=== PATIENT | female | born 1945 | race Caucasian/White ===

== ENCOUNTER 2016-06-09 03:06 | Inpatient (IN) | payer OTHER ==
[~2016-06-09] VITALS: Ht 167.6 cm; Wt 60.8 kg
[~2016-06-09 03:06] MED LIST: ADVAIR HFA120 INHALA IH; ALPRAZOLAM0.25 M2 PO; AMLODIPINE BESYL5 MG PO; ASPIRIN E.C.81 M1 PO; ASPIRIN81 M1 PO; ATORVASTATIN CA40 MG PO; Arava PO; BENTYL10 MG PO; BUMEX2 MG PO; CARDIZEM CD240 MG PO; CATAPRES0.1 MG PO; CEFTIN250 MG PO; CITALOPRAM HBR20 M1 PO; CITALOPRAM HBR20 MG PO; CLEOCIN150 MG PO; CLONIDINE HCL0.1 MG PO; COLACE100 MG PO; COUMADIN PO; COUMADIN,JANTOVE4 MG PO; COUMADIN3 M1 PO; CRESTOR20 MG PO; Catapres PO; Colace PO; DULOXETINE HCL30 MG PO; DUONEB 2.5-0.5 M3 ML AEROSOL; DURICEF PO; Deltasone PO; ENDOCET 5-3251 EACH PO; Ecotrin PO; FAMOTIDINE20 MG PO; FENOFIBRATE160 M1 PO; FENOFIBRATE160 MG PO; FLUCONAZOLE150 MG PO; FUROSEMIDE20 MG PO; Flexeril PO; GABAPENTIN100 MG PO; GABAPENTIN300 MG PO; GERI-TUSSI100 MG/5 M PO; GLIPIZIDE ER2.5 MG PO; GLIPIZIDE5 M1 PO; GLIPIZIDE5 MG PO; Glucotrol PO; ISOSORBIDE MONO30 MG PO; KENALOG,ARISTOC15 G3 TP; LACTINEX,FLO1 PACKET PO; LAMICTAL25 MG PO; LASIX10 MG PO; LASIX20 MG PO; LASIX40 MG PO; LEFLUNOMIDE20 MG PO; LEVAQUIN500 MG PO; LEVOFLOXACIN500 MG PO; LEVOFLOXACIN750 MG PO; LEVOTHROID,S0.125 MG PO; LEVOTHYROXINE125 MCG PO; LEVOTHYROXINE50 MCG PO; LIDODERM 5% P1 PATCH TD; LISINOPRIL10 MG PO; LITE COAT ASPI325 M1 PO; LOPRESSOR100 M1 PO; Lasix PO; Levothroid,Synthroid PO; Lopressor PO; MAXIPIME1 GM IM; METOPROLOL SUC100 MG PO; METOPROLOL TAR100 MG PO; MULTIVITAMIN1 EAC2 PO; NAFCIL IV; NAFCIL1 GM IV; NAPROSYN500 MG PO; NEURONTIN100 MG PO; NEURONTIN300 MG PO; NITROSTAT,NITR0.4 M1 SL; NITROSTAT0.4 MG SL; NORVASC5 MG PO; NYAMYC60 GM TP; NYSTATIN15 GM TP; Neurontin PO; Nitrostat,NitroQuick SL; Norvasc PO; OMEPRAZOLE20 M2 PO; OXYCODONE HCL10 MG PO; OXYCODONE HCL5 MG PO; OXYCODONE-APAP1 EACH PO; Oscal 500 w/Vitamin PO; OxyCODONE PO; PERCOCET 10/1 TABLET PO; PERCOCET 5/31 TABLET PO; PERCOCET 7.51 TABLET PO; POTASSIUM CHLO10 ME3 PO; PREDNISONE10 MG PO; PREDNISONE2.5 MG PO; PREDNISONE20 MG PO; PREDNISONE5 M2 PO; PREDNISONE5 MG PO; PROCHLORPERAZIN10 MG PO; PROTONIX40 MG PO; Percocet 5/325,Endoc PO; RANITIDINE HCL150 MG PO; ROCEPHIN1000 MG IM; Robaxin PO; SENNA S TABLET1 EACH PO; SERTRALINE HCL50 MG PO; SPIRIVA RESPIMAT4 GM IH; SYNTHROID200 MCG PO; Senokot,Sennagen PO; TIROSINT125 MCG PO; TOPIRAMATE50 MG PO; TRAMADOL HCL50 MG PO; TRAZODONE HCL50 MG PO; TYLENOL REGULA325 MG PO; Theragran PO; Tirosint; Toprol XL PO; Tricor PO; Tylenol Regular Stre PO; VITAMIN D50000 UNI2 PO; VITAMIN D50000 UNIT PO; VYTORIN 10-801 EACH PO; VYTORIN 10/81 TABLET PO; Vitamin B-12 PO; Vitamin D, Drisdol PO; XARELTO PO; XARELTO15 MG PO; XARELTO20 MG PO; ZESTRIL,PRINIVI10 M1 PO; ZESTRIL,PRINIVI10 MG PO; ZOFRAN4 MG PO; Zestril,Prinivil PO; celeXA PO; predniSONE PO
[2016-06-09 04:26] LABS: HEMATOCRIT 33.3 % (36.0-46.0); MCH 25.1 PG (29.0-34.0); MCHC 30.9 G/DL (30.0-36.0); MEAN PLAT.VOLUME 9.8 uM^3 (9.5-12.4); PLATELET COUNT 229 K/uL (156-360); RBC DIS.WIDTH-CV 15.9 % (11.8-14.6); RBC DIS.WIDTH-SD 46.6 % (39-53); RED BLOOD COUNT 4.11 M/uL (3.80-5.20); WHITE BLOOD COUNT 20.7 K/uL (4.1-10.2)
[2016-06-09 04:28] LABS: ADD MIUA? YES; BILIRUBIN NEGATIVE; BLOOD NEGATIVE; COLOR YELLOW ((YELLOW)); GLUCOSE (STRIP) NEGATIVE; KETONES NEGATIVE; LEUKOCYTES MODERATE; NITRITE NEGATIVE; PROTEIN (STRIP) 30; SPECIFIC GRAVITY 1.014 (1.000-1.030); UROBILINOGEN 0.2 MG/DL (0.2-1.0)
[2016-06-09 04:36] LABS: BACTERIA NONE SEEN /HPF; EPITHELIAL CELLS RARE /HPF; MUCUS TRACE /LPF; RED BLOOD CELLS 0-5 /HPF (0-5); UCUL ADDED? NO; UNCLASSIFIED CRYSTALS 1+ /HPF; WHITE BLOOD CELLS 30-40 /HPF (0-5)
[2016-06-09 04:39] LABS: CHLORIDE 109 mEq/L (99-109); POTASSIUM 4.8 mEq/L (3.7-5.4); SODIUM 142 mEq/L (136-147)
[2016-06-09 04:42] LABS: GLUCOSE 179 mg/dL (70-99)
[2016-06-09 04:43] LABS: ANION GAP 11 MEQ/L (2-14); TOTAL BILIRUBIN 0.5 mg/dL (0.0-1.0)
[2016-06-09 04:45] LABS: ALKALINE PHOSPHATASE 108 IU/L (3-129); GFR ESTIMATE (CALCULATED) 43 mL/min/
[2016-06-09 04:46] LABS: UREA NITROGEN (BUN) 26 mg/dL (9-23)
[2016-06-09 04:49] LABS: LIPASE 2 U/L (1.0-51.0)
[2016-06-09] MEDS ORDERED: ALPRAZOLAM0.5 MG PO (06:30)
[2016-06-09] MEDS ORDERED: NITROSTAT0.4 MG SL (06:31)
[2016-06-09 07:35] VITALS: BP 133/59
[2016-06-09 08:46] LABS: BASE EXCESS 0.9 mEq/L (-3 to +3); METHEMOGLOBIN 1.8 % (0-1.5); PO2 111 mm Hg (80-100); pH 7.39 (7.35-7.45)
[2016-06-09 08:47] LABS: COMMENTS - BLOOD GASES A+C+; DEVICE NC; O2 FLOW 2 L/MIN; PCO2 43 mm Hg (35-45); SITE LR
[2016-06-09] MEDS ORDERED: BUMEX1 MG PO (10:30)
[2016-06-09] MEDS ORDERED: LEVO-T75 MCG PO (10:36)
[2016-06-09] MEDS ORDERED: SPIRIVA1 INHALATI IH (10:38)
[2016-06-09] MEDS ORDERED: ADVAIR HFA120 INHALA IH (10:40)
[2016-06-09] MEDS ORDERED: ENDOCET 10-3251 EACH PO (10:52)
[2016-06-09] MEDS ORDERED: FLEET ENEMA-AD118 ML PR (10:54)
[2016-06-09 11:35] VITALS: BP 127/67
[2016-06-09 14:37] LABS: EOSINOPHIL (%) 0.7 % (0-5); EOSINOPHIL COUNT 0.1 K/uL (0-0.3); IMMATURE GRANULOCYTE (%) 1.4 % (0.0-0.7); IMMATURE GRANULOCYTE COUNT 0.3 K/uL; INSTRUMENT ABS NEUTROPHIL CT 18.1 K/uL; LYMPHOCYTE COUNT 0.7 K/uL (1.0-2.8); MONOCYTE (%) 7.2 % (3-12); MONOCYTE COUNT 1.5 K/uL (0-0.8); NEUTROPHIL (%) 87.3 % (45-76); NEUTROPHIL COUNT 18.1 K/uL (1.8-6.4)
[2016-06-09 15:31] LABS: C DIFF TOXIN NEGATIVE (NEGATIVE)
[2016-06-09 15:42] LABS: PROBE CHECK PASS; SPECIMEN PROCESSING CONTROL PASS
[2016-06-09 16:19] VITALS: BP 126/59
[2016-06-09 18:15] VITALS: BP 105/60
[2016-06-09 20:30] VITALS: BP 85/64
[2016-06-10] VITALS (7 sets, daily range): BP systolic 92–116; BP diastolic 52–76
[2016-06-10 05:57] LABS: MCHC 29.3 G/DL (30.0-36.0); RBC DIS.WIDTH-CV 16.6 % (11.8-14.6); RBC DIS.WIDTH-SD 51.2 % (39-53); RED BLOOD COUNT 3.52 M/uL (3.80-5.20)
[2016-06-10 06:01] LABS: ALKALINE PHOSPHATASE 86 IU/L (3-129); ANION GAP 12 MEQ/L (2-14); CHLORIDE 111 MEQ/L (99-109); GFR ESTIMATE (CALCULATED) 34 mL/min/; GLUCOSE 170 mg/dL (70-99); POTASSIUM 4.1 MEQ/L (3.7-5.4); SAMPLE HEMOLYSIS CHECK 0; SAMPLE ICTERIC CHECK 0; SAMPLE LIPEMIA CHECK 0; SODIUM 141 MEQ/L (136-147); TOTAL BILIRUBIN 0.8 MG/DL (0.0-1.0); UREA NITROGEN (BUN) 28 mg/dL (9-23)
[2016-06-10 06:09] LABS: MCV 85.2 FL (83-99); WHITE BLOOD COUNT 12.9 K/uL (4.1-10.2)
[2016-06-10 07:20] LABS: EOSINOPHIL (%) 1.2 % (0-5); EOSINOPHIL COUNT 0.2 K/uL (0-0.3); IMMATURE GRANULOCYTE (%) 0.4 % (0.0-0.7); IMMATURE GRANULOCYTE COUNT 0.1 K/uL; INSTRUMENT ABS NEUTROPHIL CT 11.8 K/uL; LYMPHOCYTE COUNT 0.1 K/uL (1.0-2.8); MEAN PLAT.VOLUME 10.5 uM^3 (9.5-12.4); MONOCYTE (%) 5.6 % (3-12); MONOCYTE COUNT 0.7 K/uL (0-0.8); NEUTROPHIL (%) 91.7 % (45-76); NEUTROPHIL COUNT 11.8 K/uL (1.8-6.4); PLAT.SUFFICIENCY ADEQUATE; PLATELET COUNT 166 K/uL (156-360)
[2016-06-10 08:00] LABS: POINT-OF-CARE METER ID UU14174216
[2016-06-11 01:23] LABS: TROP-I INTERPRETATION NEGATIVE; TROPONIN-I 0.03 ng/mL (0.0-0.30)
[2016-06-11 03:44] VITALS: BP 88/61
[2016-06-11 06:45] LABS: HEMATOCRIT 29.3 % (36.0-46.0); MCH 24.4 PG (29.0-34.0); MCHC 29.4 G/DL (30.0-36.0); MCV 83.2 FL (83-99); MEAN PLAT.VOLUME 10.7 uM^3 (9.5-12.4); PLATELET COUNT 155 K/uL (156-360); RBC DIS.WIDTH-SD 51.8 % (39-53); RED BLOOD COUNT 3.52 M/uL (3.80-5.20); WHITE BLOOD COUNT 9.4 K/uL (4.1-10.2)
[2016-06-11 07:10] LABS: ANION GAP 12 MEQ/L (2-14); CHLORIDE 109 MEQ/L (99-109); GFR ESTIMATE (CALCULATED) 29 mL/min/; MAGNESIUM 1.6 mg/dl (1.3-2.7); POTASSIUM 3.5 MEQ/L (3.7-5.4); SAMPLE HEMOLYSIS CHECK 0; SAMPLE ICTERIC CHECK 0; SAMPLE LIPEMIA CHECK 0; SODIUM 138 MEQ/L (136-147); UREA NITROGEN (BUN) 34 mg/dL (9-23)
[2016-06-11 07:11] VITALS: BP 90/50
[2016-06-11 07:12] LABS: GLUCOSE 109 mg/dL (70-99)
[2016-06-11 10:55] VITALS: BP 106/53
[2016-06-11 10:58] LABS: POINT-OF-CARE METER ID UU14174216
[2016-06-11 15:28] LABS: ADD MIUA? YES; BILIRUBIN NEGATIVE; BLOOD SMALL; COLOR YELLOW ((YELLOW)); GLUCOSE (STRIP) NEGATIVE; KETONES NEGATIVE; LEUKOCYTES SMALL; NITRITE NEGATIVE; PROTEIN (STRIP) NEGATIVE; SPECIFIC GRAVITY 1.012 (1.000-1.030); UROBILINOGEN 0.2 MG/DL (0.2-1.0)
[2016-06-11 15:47] LABS: POINT-OF-CARE METER ID UU14174216
[2016-06-11 15:47] LABS: UR CREATININE CONCENTRATION 61.8 MG/DL
[2016-06-11 16:45] VITALS: BP 93/54
[2016-06-11 18:30] LABS: CASTS PRESENT /LPF; EPITHELIAL CELLS 2+ /HPF; FINE GRANULAR CASTS RARE /LPF; HYALINE CASTS RARE /LPF; MUCUS NONE SEEN /LPF
[2016-06-11 18:31] LABS: BACTERIA RARE /HPF; CELLULAR CASTS RARE /LPF; COARSE GRANULAR CASTS RARE /LPF; RED BLOOD CELLS RARE /HPF (0-5)
[2016-06-11 19:39] VITALS: BP 121/74
[2016-06-11 23:54] VITALS: BP 141/84
[2016-06-12 04:11] VITALS: BP 119/59
[2016-06-12 07:28] VITALS: BP 129/59
[2016-06-12 07:37] LABS: POINT-OF-CARE METER ID UU14174216
[2016-06-12 07:42] LABS: HEMATOCRIT 27.7 % (36.0-46.0); MCH 24.8 PG (29.0-34.0); MCHC 30.3 G/DL (30.0-36.0); MCV 81.7 FL (83-99); MEAN PLAT.VOLUME 10.8 uM^3 (9.5-12.4); PLATELET COUNT 156 K/uL (156-360); RBC DIS.WIDTH-CV 17.2 % (11.8-14.6); RBC DIS.WIDTH-SD 50.9 % (39-53); RED BLOOD COUNT 3.39 M/uL (3.80-5.20)
[2016-06-12 09:49] LABS: ANION GAP 9 MEQ/L (2-14); CHLORIDE 115 MEQ/L (99-109); GFR ESTIMATE (CALCULATED) 34 mL/min/; GLUCOSE 126 mg/dL (70-99); IRON < 10 MCG/DL (35-150); MAGNESIUM 1.9 mg/dl (1.3-2.7); POTASSIUM 3.8 MEQ/L (3.7-5.4); SAMPLE HEMOLYSIS CHECK 0; SAMPLE ICTERIC CHECK 0; SAMPLE LIPEMIA CHECK 0; SODIUM 142 MEQ/L (136-147); UREA NITROGEN (BUN) 31 mg/dL (9-23)
[2016-06-12 11:34] VITALS: BP 137/66
[2016-06-12 16:33] VITALS: BP 125/82
[2016-06-12 19:10] VITALS: BP 133/67
[2016-06-12 21:27] LABS: POINT-OF-CARE METER ID UU14174216
[2016-06-12 23:08] LABS: METH RESISTANT S AUREUS PCR POSITIVE (NEGATIVE)
[2016-06-12 23:09] LABS: PROBE CHECK PASS
[2016-06-13] VITALS (7 sets, daily range): BP systolic 132–159; BP diastolic 62–81
[2016-06-13 09:10] LABS: HEMATOCRIT 28.4 % (36.0-46.0); MCH 24.6 PG (29.0-34.0); MCHC 30.3 G/DL (30.0-36.0); MCV 81.1 FL (83-99); MEAN PLAT.VOLUME 10.4 uM^3 (9.5-12.4); PLATELET COUNT 176 K/uL (156-360); RBC DIS.WIDTH-CV 17.2 % (11.8-14.6); RBC DIS.WIDTH-SD 50.7 % (39-53); WHITE BLOOD COUNT 7.7 K/uL (4.1-10.2)
[2016-06-13 09:32] LABS: ANION GAP 6 MEQ/L (2-14); CHLORIDE 113 MEQ/L (99-109); GFR ESTIMATE (CALCULATED) 52 mL/min/; GLUCOSE 111 mg/dL (70-99); MAGNESIUM 1.8 mg/dl (1.3-2.7); POTASSIUM 3.8 MEQ/L (3.7-5.4); SAMPLE HEMOLYSIS CHECK 0; SAMPLE ICTERIC CHECK 0; SAMPLE LIPEMIA CHECK 0; SODIUM 139 MEQ/L (136-147); UREA NITROGEN (BUN) 23 mg/dL (9-23)
[2016-06-14 04:11] VITALS: BP 127/61
[2016-06-14 06:27] LABS: HEMATOCRIT 27.4 % (36.0-46.0); MCH 24.6 PG (29.0-34.0); MCHC 30.7 G/DL (30.0-36.0); MCV 80.4 FL (83-99); MEAN PLAT.VOLUME 10.4 uM^3 (9.5-12.4); NRBC (%) 0.2 /100 WBC (0-0); PLATELET COUNT 196 K/uL (156-360); RBC DIS.WIDTH-CV 17.1 % (11.8-14.6); RED BLOOD COUNT 3.41 M/uL (3.80-5.20); WHITE BLOOD COUNT 8.5 K/uL (4.1-10.2)
[2016-06-14 07:11] LABS: ANION GAP 9 MEQ/L (2-14); CHLORIDE 110 MEQ/L (99-109); GFR ESTIMATE (CALCULATED) 47 mL/min/; GLUCOSE 98 mg/dL (70-99); POTASSIUM 3.6 MEQ/L (3.7-5.4); SAMPLE HEMOLYSIS CHECK 0; SAMPLE ICTERIC CHECK 0; SAMPLE LIPEMIA CHECK 0; SODIUM 141 MEQ/L (136-147); UREA NITROGEN (BUN) 21 mg/dL (9-23)
[2016-06-14 07:57] LABS: POINT-OF-CARE USER ID ENVKC36
[2016-06-14 08:28] VITALS: BP 127/80
[2016-06-14 11:30] VITALS: BP 146/65
[2016-06-14] MEDS ORDERED: METOPROLOL TAR100 MG PO (12:03)
[2016-06-14] MEDS ORDERED: KEFLEX500 MG PO (12:05)
[2016-06-14 12:09] LABS: POINT-OF-CARE USER ID ENVKC36
== END 2016-06-14 16:38 | DRG 872 ==
LOC: EME → EDBD 03:06 → 2EAST 05:47 → EDOF 05:47 → 4EAST 05:47 → 2EAST 07:26 → 4EAST 19:59
PROVIDERS: Emergency Medicine; Hospitalist; Internal Medicine Geriatric Medicine; Internal Medicine Nephrology; Physician Assistant Medical; Student in an Organized Health Care Education/Training Program
DX: A41.9 Sepsis, unspecified organism (principal); I50.22 Chronic systolic (congestive) heart failure; L03.221 Cellulitis of neck; J44.1 Chronic obstructive pulmonary disease with (acute) exacerbation; I13.0 Hypertensive heart and chronic kidney disease with heart failure and stage 1 through stage 4 chronic kidney disease, or unspecified chronic kidney disease; N17.9 Acute kidney failure, unspecified; J96.11 Chronic respiratory failure with hypoxia; F11.20 Opioid dependence, uncomplicated; B95.62 Methicillin resistant Staphylococcus aureus infection as the cause of diseases classified elsewhere; N18.9 Chronic kidney disease, unspecified; E03.9 Hypothyroidism, unspecified; E11.22 Type 2 diabetes mellitus with diabetic chronic kidney disease; E11.40 Type 2 diabetes mellitus with diabetic neuropathy, unspecified; E78.5 Hyperlipidemia, unspecified; I07.1 Rheumatic tricuspid insufficiency; I34.0 Nonrheumatic mitral (valve) insufficiency; D64.9 Anemia, unspecified; I25.10 Atherosclerotic heart disease of native coronary artery without angina pectoris; I27.2 Other secondary pulmonary hypertension; M19.90 Unspecified osteoarthritis, unspecified site; I27.81 Cor pulmonale (chronic); I48.2 Chronic atrial fibrillation; K52.9 Noninfective gastroenteritis and colitis, unspecified; K21.9 Gastro-esophageal reflux disease without esophagitis; Z99.81 Dependence on supplemental oxygen; G89.29 Other chronic pain; F32.9 Major depressive disorder, single episode, unspecified; Z86.718 Personal history of other venous thrombosis and embolism; Z86.711 Personal history of pulmonary embolism; Z99.3 Dependence on wheelchair; Z79.01 Long term (current) use of anticoagulants
CPT/HCPCS: 36600; 71010; 74176; 76775; 80048; 80053; 80069; 80202; 81003; 82570; 82803; 82948; 83540; 83605; 83690; 83735; 84156; 84466; 84484; 85025; 85027; 87040; 87086; 87493; 87641; 93005; 94640; 94640 76; 94799; 99202; 99281; 99285; J0690; J0696; J1756; J1815; J1940; J2405; J2543; J3370; J3475; J7030; J7040; J7050; S0030

== ENCOUNTER 2017-01-03 20:04 | Inpatient (IN) | payer OTHER ==
[~2017-01-03] VITALS: Ht 160 cm; Wt 71.5 kg
[~2017-01-03 20:04] MED LIST changes: +ALPRAZOLAM0.5 MG PO; +BUMEX1 MG PO; +ENDOCET 10-3251 EACH PO; +FLEET ENEMA-AD118 ML PR; +KEFLEX500 MG PO; +LEVO-T75 MCG PO; +SPIRIVA1 INHALATI IH
[2017-01-03 21:20] LABS: HEMATOCRIT 37.9 % (36.0-46.0); MCH 26.3 PG (29.0-34.0); MCHC 31.7 G/DL (30.0-36.0); MCV 82.9 FL (83-99); MEAN PLAT.VOLUME 10.4 uM^3 (9.5-12.4); PLATELET COUNT 176 K/uL (156-360); RBC DIS.WIDTH-CV 16.5 % (11.8-14.6); RBC DIS.WIDTH-SD 49.4 % (39-53); RED BLOOD COUNT 4.57 M/uL (3.80-5.20)
[2017-01-03 21:30] LABS: CHLORIDE 104 mEq/L (99-109); POTASSIUM 4.5 mEq/L (3.7-5.4); SODIUM 138 mEq/L (136-147)
[2017-01-03 21:32] LABS: GLUCOSE 221 mg/dL (70-99)
[2017-01-03 21:34] LABS: ANION GAP 11 MEQ/L (2-14)
[2017-01-03 21:36] LABS: GFR ESTIMATE (CALCULATED) 58 mL/min/
[2017-01-03 21:37] LABS: UREA NITROGEN (BUN) 18 mg/dL (9-23)
[2017-01-03 22:33] LABS: ADD MIUA? YES; BILIRUBIN NEGATIVE; BLOOD NEGATIVE; COLOR AMBER ((YELLOW)); GLUCOSE (STRIP) NEGATIVE; KETONES NEGATIVE; LEUKOCYTES NEGATIVE; NITRITE NEGATIVE; PROTEIN (STRIP) 100; SPECIFIC GRAVITY 1.016 (1.000-1.030); UROBILINOGEN 0.2 MG/DL (0.2-1.0)
[2017-01-03 22:40] LABS: BACTERIA RARE /HPF; EPITHELIAL CELLS NONE SEEN /HPF; MUCUS TRACE /LPF; UCUL ADDED? NO; WHITE BLOOD CELLS 0-5 /HPF (0-5)
[2017-01-03] MEDS ORDERED: PROZAC40 MG PO (23:06)
[2017-01-03] MEDS ORDERED: FEOSOL325 MG PO (23:06)
[2017-01-03] MEDS ORDERED: LASIX20 MG PO (23:08)
[2017-01-03] MEDS ORDERED: ROCEPHIN1000 MG IM (23:13)
[2017-01-03] MEDS ORDERED: LOPRESSOR50 MG PO (23:16)
[2017-01-03] MEDS ORDERED: MUCUS RELIEF600 M1 PO (23:17)
[2017-01-03] MEDS ORDERED: FLORASTOR250 MG PO (23:19)
[2017-01-03] MEDS ORDERED: MILK OF MAGN PO (23:20)
[2017-01-03] MEDS ORDERED: DULCOLAX10 MG PR (23:20)
[2017-01-03] MEDS ORDERED: FLEET ENEMA-AD118 ML PR (23:21)
[2017-01-03] MEDS ORDERED: VALISONE 0.1%15 GM TP (23:22)
[2017-01-03] MEDS ORDERED: DUONEB 2.5-0.5 M3 ML AEROSOL (23:22)
[2017-01-03 23:42] LABS: INFLUENZA A VIRAL ANTIGEN NEGATIVE; INFLUENZA B VIRAL ANTIGEN NEGATIVE
[2017-01-04 03:49] VITALS: BP 129/59
[2017-01-04 04:57] LABS: C DIFF TOXIN NEGATIVE (NEGATIVE)
[2017-01-04 04:58] LABS: PROBE CHECK PASS; SPECIMEN PROCESSING CONTROL PASS
[2017-01-04 07:06] LABS: HEMATOCRIT 34.6 % (36.0-46.0); MCH 26.2 PG (29.0-34.0); MCHC 31.2 G/DL (30.0-36.0); MEAN PLAT.VOLUME 10.6 uM^3 (9.5-12.4); PLATELET COUNT 161 K/uL (156-360); RBC DIS.WIDTH-CV 16.6 % (11.8-14.6); RBC DIS.WIDTH-SD 51.2 % (39-53); RED BLOOD COUNT 4.12 M/uL (3.80-5.20); WHITE BLOOD COUNT 14.8 K/uL (4.1-10.2)
[2017-01-04 07:29] LABS: ANION GAP 11 MEQ/L (2-14); CHLORIDE 106 MEQ/L (99-109); GFR ESTIMATE (CALCULATED) 58 mL/min/; GLUCOSE 235 mg/dL (70-99); POTASSIUM 4.1 MEQ/L (3.7-5.4); SAMPLE HEMOLYSIS CHECK 0; SAMPLE ICTERIC CHECK 0; SAMPLE LIPEMIA CHECK 0; SODIUM 139 MEQ/L (136-147); UREA NITROGEN (BUN) 17 mg/dL (9-23)
[2017-01-04 07:34] VITALS: BP 105/58
[2017-01-04 11:52] VITALS: BP 137/63
[2017-01-04 15:50] VITALS: BP 147/69
[2017-01-04 19:48] VITALS: BP 124/66
[2017-01-05] VITALS (7 sets, daily range): BP systolic 117–174; BP diastolic 63–79
[2017-01-06] VITALS (7 sets, daily range): BP systolic 119–153; BP diastolic 55–69
[2017-01-06 11:22] LABS: EOSINOPHIL COUNT 0.5 K/uL (0-0.3); HEMATOCRIT 32.2 % (36.0-46.0); IMMATURE GRANULOCYTE (%) 0.4 % (0.0-0.7); LYMPHOCYTE COUNT 0.7 K/uL (1.0-2.8); MCH 26.2 PG (29.0-34.0); MCHC 30.7 G/DL (30.0-36.0); MCV 85.2 FL (83-99); MEAN PLAT.VOLUME 10.7 uM^3 (9.5-12.4); MONOCYTE (%) 14.2 % (3-12); PLATELET COUNT 137 K/uL (156-360); RBC DIS.WIDTH-CV 16.8 % (11.8-14.6); RBC DIS.WIDTH-SD 52.3 % (39-53); RED BLOOD COUNT 3.78 M/uL (3.80-5.20); WHITE BLOOD COUNT 7.2 K/uL (4.1-10.2)
[2017-01-06 11:44] LABS: ANION GAP 6 MEQ/L (2-14); CHLORIDE 111 MEQ/L (99-109); GFR ESTIMATE (CALCULATED) > 59 mL/min/; GLUCOSE 123 mg/dL (70-99); SAMPLE HEMOLYSIS CHECK 0; SAMPLE ICTERIC CHECK 0; SAMPLE LIPEMIA CHECK 0; SODIUM 142 MEQ/L (136-147); UREA NITROGEN (BUN) 19 mg/dL (9-23)
[2017-01-07 03:41] VITALS: BP 142/63
[2017-01-07 07:33] VITALS: BP 154/68
[2017-01-07] MEDS ORDERED: KEFLEX500 MG PO (11:41)
== END 2017-01-07 15:30 | DRG 189 ==
LOC: EME → EDBD 20:04 → EME 20:04 → EDOF 01-04 01:09 → 5SOUTH 01-04 01:09 → ENRESERV 01-04 01:10 → 5SOUTH 01-04 03:16 → ENPENDDIS 01-07 → 5SOUTH 01-07 15:30
PROVIDERS: Emergency Medicine; Internal Medicine
DX: J81.0 Acute pulmonary edema (principal); J96.11 Chronic respiratory failure with hypoxia; L03.116 Cellulitis of left lower limb; R65.10 Systemic inflammatory response syndrome (SIRS) of non-infectious origin without acute organ dysfunction; J44.9 Chronic obstructive pulmonary disease, unspecified; I50.9 Heart failure, unspecified; I48.2 Chronic atrial fibrillation; I11.0 Hypertensive heart disease with heart failure; E03.9 Hypothyroidism, unspecified; E11.9 Type 2 diabetes mellitus without complications; R50.9 Fever, unspecified; I25.10 Atherosclerotic heart disease of native coronary artery without angina pectoris; R19.7 Diarrhea, unspecified; L40.9 Psoriasis, unspecified; M75.00 Adhesive capsulitis of unspecified shoulder; Z79.84 Long term (current) use of oral hypoglycemic drugs; Z95.1 Presence of aortocoronary bypass graft; Z79.01 Long term (current) use of anticoagulants
CPT/HCPCS: 71020; 74177; 80048; 80202; 81003; 82565; 83605; 85025; 85027; 87040; 87086; 87493; 87502; 93005; 94799; 99202; 99281; 99285; J2543; J3370; J7030; J7050

== ENCOUNTER 2017-01-08 11:25 | Observation (INO) | payer OTHER ==
[~2017-01-08] VITALS: Ht 160 cm; Wt 70.6 kg
[~2017-01-08 11:25] MED LIST changes: +DULCOLAX10 MG PR; +FEOSOL325 MG PO; +FLORASTOR250 MG PO; +LOPRESSOR50 MG PO; +MILK OF MAGN PO; +MUCUS RELIEF600 M1 PO; +PROZAC40 MG PO; +VALISONE 0.1%15 GM TP
[2017-01-08 12:25] LABS: EOSINOPHIL COUNT 0.5 K/uL (0-0.3); HEMATOCRIT 34.6 % (36.0-46.0); IMMATURE GRANULOCYTE (%) 0.5 % (0.0-0.7); INSTRUMENT ABS NEUTROPHIL CT 5.5 K/uL; LYMPHOCYTE COUNT 0.7 K/uL (1.0-2.8); MCH 25.7 PG (29.0-34.0); MCHC 31.5 G/DL (30.0-36.0); MCV 81.6 FL (83-99); MEAN PLAT.VOLUME 11.3 uM^3 (9.5-12.4); MONOCYTE (%) 10.3 % (3-12); MONOCYTE COUNT 0.8 K/uL (0-0.8); NEUTROPHIL (%) 72.1 % (45-76); NEUTROPHIL COUNT 5.5 K/uL (1.8-6.4); RBC DIS.WIDTH-CV 15.9 % (11.8-14.6); RBC DIS.WIDTH-SD 47.2 % (39-53); RED BLOOD COUNT 4.24 M/uL (3.80-5.20); WHITE BLOOD COUNT 7.6 K/uL (4.1-10.2)
[2017-01-08 12:30] LABS: INTER. NORMALIZED RATIO 1.1; PROTHROMBIN TIME 12.7 SEC (10.2-12.9)
[2017-01-08 12:31] LABS: PLATELET COUNT 209 K/uL (156-360)
[2017-01-08 12:32] LABS: PTT 31.5 SEC (25-37)
[2017-01-08 12:39] LABS: CHLORIDE 104 mEq/L (99-109); SODIUM 139 mEq/L (136-147)
[2017-01-08 12:41] LABS: GLUCOSE 106 mg/dL (70-99)
[2017-01-08 12:42] LABS: ANION GAP 8 MEQ/L (2-14)
[2017-01-08 12:45] LABS: GFR ESTIMATE (CALCULATED) > 59 mL/min/
[2017-01-08 12:46] LABS: UREA NITROGEN (BUN) 11 mg/dL (9-23)
[2017-01-08 12:47] LABS: TROP-I INTERPRETATION NEGATIVE; TROPONIN-I 0.01 ng/mL (0.0-0.30)
[2017-01-08 14:56] VITALS: BP 173/77
[2017-01-08 18:53] VITALS: BP 174/74
[2017-01-08 19:18] LABS: TROP-I INTERPRETATION NEGATIVE; TROPONIN-I 0.02 ng/mL (0.0-0.30)
[2017-01-08 23:16] VITALS: BP 155/70
[2017-01-09 00:56] LABS: TROP-I INTERPRETATION NEGATIVE; TROPONIN-I 0.02 ng/mL (0.0-0.30)
[2017-01-09 03:36] VITALS: BP 150/66
[2017-01-09 09:01] VITALS: BP 151/86
== END 2017-01-09 11:29 ==
LOC: EME 11:25 → ENRESERV 14:03 → 5WEST 14:04 → EDOF 14:04 → ENRESERV 14:12 → 5WEST 14:44
PROVIDERS: Emergency Medicine; Internal Medicine
DX: R07.9 Chest pain, unspecified (principal); I48.2 Chronic atrial fibrillation; Z79.01 Long term (current) use of anticoagulants; I25.10 Atherosclerotic heart disease of native coronary artery without angina pectoris; Z95.1 Presence of aortocoronary bypass graft; I11.0 Hypertensive heart disease with heart failure; I50.9 Heart failure, unspecified; L03.116 Cellulitis of left lower limb; E89.0 Postprocedural hypothyroidism; M75.00 Adhesive capsulitis of unspecified shoulder; J44.9 Chronic obstructive pulmonary disease, unspecified; E11.9 Type 2 diabetes mellitus without complications; Z79.84 Long term (current) use of oral hypoglycemic drugs; L40.9 Psoriasis, unspecified; Z90.49 Acquired absence of other specified parts of digestive tract; Z87.19 Personal history of other diseases of the digestive system; Z87.448 Personal history of other diseases of urinary system; Z90.710 Acquired absence of both cervix and uterus
CPT/HCPCS: 71010; 80048; 84484; 85025; 85610; 85730; 93005; 99281; 99285; G0378; J1200; J1885; J2270

== ENCOUNTER 2017-04-15 22:18 | Inpatient (IN) | payer OTHER ==
[~2017-04-15] VITALS: Ht 160 cm; Wt 87.2 kg
[~2017-04-15 22:18] MED LIST changes: -OMEPRAZOLE20 M2 PO; +OMEPRAZOLE20 MG PO; +SYNTHROID150 MCG PO; -SYNTHROID200 MCG PO
[2017-04-15 23:09] LABS: HEMOGLOBIN 11.1 G/DL (11.9-15.5); MCH 27.8 PG (29.0-34.0); MCHC 30.8 G/DL (30.0-36.0); PLATELET COUNT 161 K/uL (156-360); RBC DIS.WIDTH-CV 15.7 % (11.8-14.6); RBC DIS.WIDTH-SD 51.8 % (39-53); WHITE BLOOD COUNT 9.9 K/uL (4.1-10.2)
[2017-04-15 23:14] LABS: INTER. NORMALIZED RATIO 1.6
[2017-04-15 23:17] LABS: PTT 29.7 SEC (25-37)
[2017-04-15 23:31] LABS: ALBUMIN 3.4 G/DL (3.2-4.8); ALKALINE PHOSPHATASE 99 IU/L (3-129); ALT (GPT) 15 IU/L (3-49); AST (GOT) 21 IU/L (2-34); CHLORIDE 98 MEQ/L (99-109); CREATININE 2.5 MG/DL (0.6-1.3); GFR ESTIMATE (CALCULATED) 20 mL/min/; GLUCOSE 190 mg/dL (70-99); LIPASE 5 U/L (1.0-51.0); POTASSIUM 4.5 MEQ/L (3.7-5.4); SODIUM 138 MEQ/L (136-147); TOTAL BILIRUBIN 0.8 MG/DL (0.0-1.0); TOTAL PROTEIN 6.4 G/DL (6.4-8.3); UREA NITROGEN (BUN) 41 mg/dL (9-23)
[2017-04-15 23:32] LABS: TROP-I INTERPRETATION NEGATIVE; TROPONIN-I 0.02 ng/mL (0.0-0.30)
[2017-04-16] VITALS (7 sets, daily range): BP systolic 104–132; BP diastolic 48–78
[2017-04-16] MEDS ORDERED: GABAPENTIN100 MG PO (00:26)
[2017-04-16] MEDS ORDERED: SYNTHROID75 MCG PO (00:27)
[2017-04-16] MEDS ORDERED: CEFTRIAXONE1 G1 IM (00:28)
[2017-04-16] MEDS ORDERED: TRADJENTA5 MG PO (00:29)
[2017-04-16] MEDS ORDERED: XARELTO15 MG PO (00:29)
[2017-04-16] MEDS ORDERED: GABAPENTIN300 MG PO (00:29)
[2017-04-16] MEDS ORDERED: DUONEB 2.5-0.5 M3 ML AEROSOL (00:33)
[2017-04-16] MEDS ORDERED: ZOFRAN4 MG PO (00:33)
[2017-04-16 01:27] LABS: APPEARANCE SL.HAZY ((CLEAR)); BILIRUBIN NEGATIVE; BLOOD NEGATIVE; COLOR AMBER ((YELLOW)); GLUCOSE (STRIP) NEGATIVE; KETONES NEGATIVE; LEUKOCYTES SMALL; NITRITE NEGATIVE; PROTEIN (STRIP) 100; SPECIFIC GRAVITY 1.019 (1.000-1.030); UROBILINOGEN 0.2 MG/DL (0.2-1.0)
[2017-04-16 01:32] LABS: BACTERIA NONE SEEN /HPF; EPITHELIAL CELLS RARE /HPF; MUCUS NONE SEEN /LPF; RED BLOOD CELLS 0-5 /HPF (0-5); UCUL ADDED? YES
[2017-04-16 08:48] LABS: HEMATOCRIT 30.7 % (36.0-46.0); HEMOGLOBIN 9.5 G/DL (11.9-15.5); MCH 27.6 PG (29.0-34.0); MCHC 30.9 G/DL (30.0-36.0); MCV 89.2 FL (83-99); PLATELET COUNT 127 K/uL (156-360); RBC DIS.WIDTH-CV 15.9 % (11.8-14.6); RBC DIS.WIDTH-SD 52.1 % (39-53); RED BLOOD COUNT 3.44 M/uL (3.80-5.20); WHITE BLOOD COUNT 6.1 K/uL (4.1-10.2)
[2017-04-16 09:25] LABS: CHLORIDE 100 MEQ/L (99-109); CREATININE 2.7 MG/DL (0.6-1.3); GFR ESTIMATE (CALCULATED) 18 mL/min/; GLUCOSE 209 mg/dL (70-99); POTASSIUM 4.3 MEQ/L (3.7-5.4); SODIUM 139 MEQ/L (136-147); UREA NITROGEN (BUN) 45 mg/dL (9-23)
[2017-04-17 04:00] VITALS: BP 130/75
[2017-04-17 05:29] LABS: HEMOGLOBIN 9.4 G/DL (11.9-15.5); MCH 27.6 PG (29.0-34.0); MCHC 31.3 G/DL (30.0-36.0); MCV 88.2 FL (83-99); PLATELET COUNT 134 K/uL (156-360); RBC DIS.WIDTH-CV 15.9 % (11.8-14.6); RBC DIS.WIDTH-SD 51.8 % (39-53); WHITE BLOOD COUNT 5.2 K/uL (4.1-10.2)
[2017-04-17 06:21] LABS: CHLORIDE 109 MEQ/L (99-109); CREATININE 2.2 MG/DL (0.6-1.3); GFR ESTIMATE (CALCULATED) 23 mL/min/; GLUCOSE 86 mg/dL (70-99); POTASSIUM 3.9 MEQ/L (3.7-5.4); SODIUM 142 MEQ/L (136-147); UREA NITROGEN (BUN) 43 mg/dL (9-23)
[2017-04-17 08:35] VITALS: BP 157/68
[2017-04-17 10:00] LABS: ALBUMIN 2.8 G/DL (3.2-4.8); MAGNESIUM 1.8 mg/dl (1.3-2.7); PHOSPHORUS 3.2 mg/dL (2.5-4.9)
[2017-04-17 10:30] LABS: INTACT PARATHYROID HORMONE 113 pg/mL (10-69)
[2017-04-17 12:13] VITALS: BP 171/70
[2017-04-17 15:11] VITALS: BP 111/67
[2017-04-17 16:34] LABS: CHLORIDE 111 MEQ/L (99-109); CREATININE 1.8 MG/DL (0.6-1.3); GFR ESTIMATE (CALCULATED) 29 mL/min/; POTASSIUM 4.6 MEQ/L (3.7-5.4); SODIUM 140 MEQ/L (136-147); UREA NITROGEN (BUN) 39 mg/dL (9-23)
[2017-04-17 16:37] LABS: GLUCOSE 130 mg/dL (70-99)
[2017-04-17 20:50] VITALS: BP 122/71
[2017-04-18 00:35] VITALS: BP 145/58
[2017-04-18 05:30] VITALS: BP 126/70
[2017-04-18 08:27] VITALS: BP 126/56
[2017-04-18 10:34] VITALS: BP 133/82
[2017-04-18 13:30] LABS: CREATININE 1.4 MG/DL (0.6-1.3)
[2017-04-18 15:35] VITALS: BP 160/77
[2017-04-18 20:47] VITALS: BP 149/71
[2017-04-19] VITALS (7 sets, daily range): BP systolic 107–165; BP diastolic 63–84
[2017-04-19 06:18] LABS: CHLORIDE 110 MEQ/L (99-109); CREATININE 1.2 MG/DL (0.6-1.3); GFR ESTIMATE (CALCULATED) 47 mL/min/; GLUCOSE 99 mg/dL (70-99); POTASSIUM 3.7 MEQ/L (3.7-5.4); SODIUM 142 MEQ/L (136-147); UREA NITROGEN (BUN) 23 mg/dL (9-23)
[2017-04-19 06:31] LABS: HEMATOCRIT 31.9 % (36.0-46.0); MCH 27.7 PG (29.0-34.0); MCHC 31.3 G/DL (30.0-36.0); MCV 88.4 FL (83-99); RBC DIS.WIDTH-CV 15.9 % (11.8-14.6); RBC DIS.WIDTH-SD 51.8 % (39-53); RED BLOOD COUNT 3.61 M/uL (3.80-5.20); WHITE BLOOD COUNT 6.6 K/uL (4.1-10.2)
[2017-04-19 06:51] LABS: PLATELET COUNT 182 K/uL (156-360)
[2017-04-20 00:14] VITALS: BP 155/65
[2017-04-20 04:14] VITALS: BP 139/66
[2017-04-20 05:37] LABS: HEMATOCRIT 33.6 % (36.0-46.0); HEMOGLOBIN 10.4 G/DL (11.9-15.5); MCH 27.3 PG (29.0-34.0); MCV 88.2 FL (83-99); PLATELET COUNT 192 K/uL (156-360); RBC DIS.WIDTH-CV 15.9 % (11.8-14.6); RBC DIS.WIDTH-SD 50.6 % (39-53); RED BLOOD COUNT 3.81 M/uL (3.80-5.20)
[2017-04-20 06:07] LABS: CHLORIDE 110 MEQ/L (99-109); CREATININE 0.9 MG/DL (0.6-1.3); GFR ESTIMATE (CALCULATED) > 59 mL/min/; GLUCOSE 85 mg/dL (70-99); POTASSIUM 3.9 MEQ/L (3.7-5.4); SODIUM 142 MEQ/L (136-147); UREA NITROGEN (BUN) 15 mg/dL (9-23)
[2017-04-20 08:45] VITALS: BP 150/64
[2017-04-20] MEDS ORDERED: LEVOFLOXACIN250 MG PO (09:20)
[2017-04-20] MEDS ORDERED: ENDOCET 10-3251 EACH PO (09:24)
== END 2017-04-20 11:39 | DRG 871 ==
LOC: EME → EDBD 22:18 → EME 22:18 → 2EASTP 04-16 00:09 → EDOF 04-16 00:09 → 4EAST 04-16 00:09 → ENRESERV 04-16 00:11 → 2EASTP 04-16 03:32 → ENRESERV 04-16 08:18 → 4EAST 04-16 09:14 → ENPENDDIS 04-20 → 4EAST 04-20 11:39
PROVIDERS: Emergency Medicine; Family Medicine; Hospitalist
DX: A41.9 Sepsis, unspecified organism (principal); J18.9 Pneumonia, unspecified organism; J44.0 Chronic obstructive pulmonary disease with (acute) lower respiratory infection; J44.1 Chronic obstructive pulmonary disease with (acute) exacerbation; J96.11 Chronic respiratory failure with hypoxia; L03.116 Cellulitis of left lower limb; L03.115 Cellulitis of right lower limb; N17.9 Acute kidney failure, unspecified; R65.20 Severe sepsis without septic shock; L97.821 Non-pressure chronic ulcer of other part of left lower leg limited to breakdown of skin; L97.919 Non-pressure chronic ulcer of unspecified part of right lower leg with unspecified severity; E87.2 Acidosis; E86.0 Dehydration; E83.51 Hypocalcemia; I11.0 Hypertensive heart disease with heart failure; I50.32 Chronic diastolic (congestive) heart failure; E11.622 Type 2 diabetes mellitus with other skin ulcer; I48.2 Chronic atrial fibrillation; E78.5 Hyperlipidemia, unspecified; I25.10 Atherosclerotic heart disease of native coronary artery without angina pectoris; K21.9 Gastro-esophageal reflux disease without esophagitis; L40.9 Psoriasis, unspecified; B37.0 Candidal stomatitis; D50.9 Iron deficiency anemia, unspecified; E03.9 Hypothyroidism, unspecified; F32.9 Major depressive disorder, single episode, unspecified; F41.9 Anxiety disorder, unspecified; Y95 Nosocomial condition; E66.9 Obesity, unspecified; Z99.81 Dependence on supplemental oxygen; Z68.32 Body mass index [BMI] 32.0-32.9, adult; I25.2 Old myocardial infarction; Z22.322 Carrier or suspected carrier of Methicillin resistant Staphylococcus aureus; Z79.01 Long term (current) use of anticoagulants; Z79.84 Long term (current) use of oral hypoglycemic drugs; Z86.14 Personal history of Methicillin resistant Staphylococcus aureus infection; Z86.711 Personal history of pulmonary embolism; Z95.1 Presence of aortocoronary bypass graft; Z87.442 Personal history of urinary calculi
CPT/HCPCS: 71045; 80048; 80048 91; 80053; 80202; 81003; 82040; 82306; 82330; 82565; 82948; 83605; 83690; 83735; 83880; 83970; 84100; 84484; 85027; 85610; 85730; 87040; 87070; 87086; 87205; 87641; 93005; 94640; 94760; 94799; 99202; 99281; 99285; J0610; J1815; J1940; J1956; J2543; J3370; J7030; J7040; J7050